=== PATIENT | female | born 1970 | race African-American/Black ===

== ENCOUNTER 2017-04-10 14:11 | Outpatient (CLI) | payer MEDICARE | END 2017-04-10 14:12 | disposition home or self-care (01) | LOC: BICRAD 14:11 | PROVIDERS: ATTEND Family Medicine | DX: M79.641 Pain in right hand (principal); M79.642 Pain in left hand ==

== ENCOUNTER 2017-04-19 03:44 | Emergency (ER) | payer MEDICARE ==
[2017-04-19] MEDS ORDERED: Gabapentin 300 MG CAP PO SCH (04:45)
== END 2017-04-19 04:55 | disposition home or self-care (01) ==
LOC: ERS 03:44
DX: G62.9 Polyneuropathy, unspecified (principal); F41.9 Anxiety disorder, unspecified; Z87.891 Personal history of nicotine dependence; Z79.1 Long term (current) use of non-steroidal anti-inflammatories (NSAID)
CPT/HCPCS: 99283

== ENCOUNTER 2017-05-06 16:19 | Outpatient (CLI) | payer MEDICARE | END 2017-05-06 16:20 | disposition home or self-care (01) | LOC: BICMAMMO 16:19 | PROVIDERS: ATTEND Family Medicine | DX: N63.10 Unspecified lump in the right breast, unspecified quadrant (principal); N64.89 Other specified disorders of breast | CPT/HCPCS: 76642; 77066; G0279 ==

== ENCOUNTER 2018-07-30 15:45 | Outpatient (CLI) | payer MEDICARE ==
--- NOTE | 2018-07-30 16:18 | MMO ---
Bilateral MAMMO Bilat Screen [facility]. CLINICAL HISTORY: Patient is 47 years old and is seen for screening. The patient has the following family history of breast cancer: cousin female. The patient has no personal history of cancer. The patient has a history of left Excisional Biopsy in November, - benign and left Ultrasound Guided Core Biopsy in October, - fibroadenoma. VIEWS: The views performed were: bilateral craniocaudal with tomosynthesis and bilateral mediolateral oblique with tomosynthesis. FILMS COMPARED: The present examination has been compared to prior imaging studies performed at [facility] on 11/06/2011, 11/08/2011, 10/21/2013, 05/20/2015, 05/21/2016 and 05/06/2017. MAMMOGRAM FINDINGS: There are scattered fibroglandular densities. Finding 1: There is a stable focal asymmetry seen in the upper-outer region of the right breast. Finding 2: There is a stable post-surgical scar seen in the left breast. There are no suspicious masses, suspicious calcifications, or new areas of architectural distortion. IMPRESSION: THERE IS NO MAMMOGRAPHIC EVIDENCE OF MALIGNANCY. A ROUTINE FOLLOW-UP MAMMOGRAM IN 1 YEAR IS RECOMMENDED. THE RESULTS OF THIS EXAM WERE SENT TO THE PATIENT. ACR BI-RADS Category 2 - Benign finding MAMMOGRAPHY NOTE: 1. A negative mammogram report should not delay a biopsy if a dominant of clinically suspicious mass is present. 2. Approximately 10% to 15% of breast cancers are not detected by mammography. 3. Adenosis and dense breasts may obscure an underlying neoplasm.
== END 2018-07-30 15:46 | disposition home or self-care (01) ==
LOC: BICMAMMO 15:45
PROVIDERS: ATTEND Family Medicine
DX: Z12.31 Encounter for screening mammogram for malignant neoplasm of breast (principal); Z80.3 Family history of malignant neoplasm of breast
CPT/HCPCS: 77063; 77067

== ENCOUNTER 2019-10-23 09:03 | Outpatient (CLI) | payer MEDICARE ==
--- NOTE | 2019-10-23 10:00 | MMO ---
Bilateral MAMMO Bilat Screen [facility]. CLINICAL HISTORY: Patient is 49 years old and is seen for screening. The patient has the following family history of breast cancer: cousin female. The patient has no personal history of cancer. The patient has a history of left Excisional Biopsy in November, - benign and left Ultrasound Guided Core Biopsy in October, - fibroadenoma. VIEWS: The views performed were: bilateral craniocaudal with tomosynthesis and bilateral mediolateral oblique with tomosynthesis. FILMS COMPARED: The present examination has been compared to prior imaging studies performed at [facility] on 05/20/2015, 05/21/2016, 05/06/2017 and 07/30/2018. This study has been interpreted with the assistance of computer-aided detection. MAMMOGRAM FINDINGS: There are scattered fibroglandular densities. Finding 1: There is a stable focal asymmetry seen in the right breast. Finding 2: There are stable post operative changes seen in the left breast. There are no suspicious masses, suspicious calcifications, or new areas of architectural distortion. IMPRESSION: THERE IS NO MAMMOGRAPHIC EVIDENCE OF MALIGNANCY. A ROUTINE FOLLOW-UP MAMMOGRAM IN 1 YEAR IS RECOMMENDED. THE RESULTS OF THIS EXAM WERE SENT TO THE PATIENT. ACR BI-RADS Category 2 - Benign finding MAMMOGRAPHY NOTE: 1. A negative mammogram report should not delay a biopsy if a dominant of clinically suspicious mass is present. 2. Approximately 10% to 15% of breast cancers are not detected by mammography. 3. Adenosis and dense breasts may obscure an underlying neoplasm. Reported by: YOLANDA WATKINS MD Electonically Signed: [id number]
--- NOTE | 2019-10-23 10:34 | RAD ---
RIGHT FOOT 3 VIEWS: Date: 10/23/2019 HISTORY: Right foot pain at fifth metatarsal. FINDINGS/IMPRESSION: No fracture, dislocation, or bony destruction is seen. POS: [facility]
== END 2019-10-23 09:04 | disposition home or self-care (01) ==
LOC: BICMAMMO 09:03
PROVIDERS: ATTEND Family Medicine
DX: Z12.31 Encounter for screening mammogram for malignant neoplasm of breast (principal); M79.671 Pain in right foot; Z80.3 Family history of malignant neoplasm of breast; Z91.89 Other specified personal risk factors, not elsewhere classified
CPT/HCPCS: 77063; 77067

== ENCOUNTER 2020-03-08 14:34 | Outpatient (CLI) | payer MEDICARE ==
--- NOTE | 2020-03-08 14:55 | RAD ---
XR Knee Rt 4 View STANDARD HISTORY: Right knee pain FINDINGS: No fracture or dislocation is identified. Degenerative changes are present manifested by osteophyte f ormation and joint space narrowing, most prominent in the medial tibiofemoral compartment.
== END 2020-03-08 14:35 | disposition home or self-care (01) ==
LOC: BICRAD 14:34
PROVIDERS: ATTEND Family Medicine
DX: M25.561 Pain in right knee (principal)

== ENCOUNTER 2020-11-18 13:02 | Outpatient (CLI) | payer MEDICARE | END 2020-11-18 13:03 | disposition home or self-care (01) | LOC: BICMAMMO 13:02 | PROVIDERS: ATTEND Family Medicine | DX: Z12.31 Encounter for screening mammogram for malignant neoplasm of breast (principal); Z80.3 Family history of malignant neoplasm of breast; Z91.89 Other specified personal risk factors, not elsewhere classified | CPT/HCPCS: 77063; 77067 ==

== ENCOUNTER 2022-01-23 10:22 | Outpatient (CLI) | payer OTHER | END 2022-01-23 10:23 | disposition home or self-care (01) | LOC: DTY/OP 10:22 | PROVIDERS: ATTEND Surgery | DX: E66.01 Morbid (severe) obesity due to excess calories (principal); Z68.43 Body mass index [BMI] 50.0-59.9, adult; Z71.3 Dietary counseling and surveillance | CPT/HCPCS: 97802 ==

== ENCOUNTER 2022-03-21 08:05 | Outpatient (CLI) | payer MEDICARE ==
[2022-03-21 10:00] LABS: #Eosinphils 0.1 10x3/uL (0.0-0.5); #Monocytes 0.7 10x3/uL (0.0-1.1); #Neutrophils 5.8 10x3/uL (1.5-8.4); %Basophils 0.4 % (0.0-2.0); %Lymphocytes 21.2 % (18.0-47.0); %Monocytes 8.1 % (0.0-10.0); %Neutrophils 69.1 % (40.0-75.0); Hemoglobin 12.3 g/dL (12.0-15.5); Mean Corpuscular HGB CONC 32.7 g/dL (32.0-36.0); Mean Corpuscular Volume 91.7 fl (81.6-98.3); Mean Platelet Volume 11.6 fl (7.4-10.4); Platelet Count 347 10x3/uL (150-450); RBC Distribution Width 14.6 % (11.5-14.5); White Blood Cell (WBC) Count 8.4 10x3/uL (3.5-10.5)
[2022-03-21 10:19] LABS: ALT (SGPT) 47 U/L (8-55); AST (SGOT) 38 U/L (5-34); Albumin 4.5 g/dL (3.5-5.0); Alkaline Phosphatase 100 U/L (40-110); Anion Gap 15 mmol/L (10-20); BUN (Urea Nitrogen) 20 mg/dL (7.0-18.7); Bilirubin, Total 0.4 mg/dL (0.2-1.2); Calc. Creatinine Clearance 0 mL/min (70-130); Carbon Dioxide 25 mmol/L (22-29); Chloride 100 mmol/L (98-107); Estimated GFR 92; Globulin 3.6 g/dL (2.4-3.5); Glucose 88 mg/dL (70-105); Potassium 4.2 mmol/L (3.5-5.1); Protein, Total 8.1 g/dL (6.0-8.3); Sodium 136 mmol/L (136-145)
[2022-03-21 13:05] LABS: Hemoglobin A1c 5.7 % (4.0-6.0)
== END 2022-03-21 08:06 | disposition home or self-care (01) ==
LOC: LABBT 08:05
PROVIDERS: ATTEND Surgery
DX: Z01.818 Encounter for other preprocedural examination (principal); E11.9 Type 2 diabetes mellitus without complications; I10 Essential (primary) hypertension; Z68.43 Body mass index [BMI] 50.0-59.9, adult
CPT/HCPCS: 71046; 80053; 83036; 85025; 93005; 93010

== ENCOUNTER 2022-03-29 09:49 | Inpatient (IN) | payer MEDICARE ==
[2022-03-28 15:31] VITALS: BMI 47.0
[2022-03-29] MEDS ORDERED: Bupivacaine/Epinephrine 0.25% 30 ML VIAL ONE (11:56)
[2022-03-29] MEDS ORDERED: Heparin 5,000 UNITS/ML VIAL ONE (12:04)
[2022-03-29] MEDS ORDERED: Sodium Chloride 0.9% 100 ML ONE (12:06)
[2022-03-29] MEDS ORDERED: CEFAZOLIN 2 GM VIAL ONE (12:06)
[2022-03-29] MEDS ORDERED: Midazolam HCl 2 mg/2 ml Vial ONE (12:08)
[2022-03-29] MEDS ORDERED: Fentanyl 250 MCG/5 ML VIAL ONE (12:08)
[2022-03-29] MEDS ORDERED: NEOSTIGMINE 3 MG/3 ML SYR 3 MG/3 ML SYRINGE ONE (12:18)
[2022-03-29] MEDS ORDERED: GLYCOPYRROLATE/PF 0.2 MG/ML VIAL ONE (12:18)
[2022-03-29] MEDS ORDERED: Phenylephrine 10 MG/ML VIAL ONE (12:18)
[2022-03-29] MEDS ORDERED: Ketorolac Tromethamine 30 MG/ML VIAL ONE (12:18)
[2022-03-29] MEDS ORDERED: PROPOFOL 200 MG/20 ML VIAL ONE (12:18)
[2022-03-29] MEDS ORDERED: Rocuronium Bromide 10 MG/ML (10ML VIAL) ONE (12:18)
[2022-03-29] MEDS ORDERED: Ondansetron PF 4 MG/2 ML Vial IVP PRN (14:45)
[2022-03-29] MEDS ORDERED: hydrALAZINE 20 MG/ML VIAL SLOW IVP PRN (14:45)
[2022-03-29] MEDS ORDERED: Dextrose 5% in Water 1,000 ML IV PRN (14:45)
[2022-03-29] MEDS ORDERED: diphenhydrAMINE 50 MG/ML VIAL IVP PRN (14:45)
[2022-03-29] MEDS ORDERED: Dextrose 50% Abboject 50 ML SYRINGE SLOW IVP PRN (14:45)
[2022-03-29] MEDS ORDERED: Promethazine HCl 25 MG/ML VIAL IM PRN ×2 (14:45→14:52)
[2022-03-29] MEDS ORDERED: Meperidine HCl/PF 25 MG/ML VIAL SLOW IVP PRN (14:52)
[2022-03-29] MEDS ORDERED: Ondansetron HCl/PF 4 MG/2 ML Vial IVP PRN (14:52)
[2022-03-29] MEDS ORDERED: Promethazine HCl 25 MG/ML VIAL IVPB PRN (14:52)
[2022-03-29] MEDS ORDERED: Morphine 4 MG/ML VIAL SLOW IVP PRN (14:58)
[2022-03-29] MEDS: Ketorolac Tromethamine 30 MG/ML VIAL IVP SCH ×2 (17:25→23:03)
[2022-03-29] MEDS: D5 1/2 NS w/20 mEq KCL 1,000 ML IV SCH (17:26)
[2022-03-29] MEDS: Morphine 4 MG/ML VIAL SLOW IVP PRN (20:23)
[2022-03-29] MEDS: CEFAZOLIN 2 GM in Sodium Chloride 0.9% 100 ML IVPB SCH (20:23)
[2022-03-30] MEDS: Morphine 4 MG/ML VIAL SLOW IVP PRN (02:19)
[2022-03-30] MEDS: D5 1/2 NS w/20 mEq KCL 1,000 ML IV SCH ×2 (02:19→07:44)
[2022-03-30] MEDS: CEFAZOLIN 2 GM in Sodium Chloride 0.9% 100 ML IVPB SCH (05:32)
[2022-03-30] MEDS: Ketorolac Tromethamine 30 MG/ML VIAL IVP SCH ×2 (05:32→11:15)
[2022-03-30] MEDS: Hydrocodone-Acetamin 15 ML UDCUP PO PRN ×2 (05:34→11:15)
[2022-03-30 08:03] VITALS: TEMP 98
[2022-03-30] MEDS ORDERED: Enoxaparin Sodium 40 MG/0.4 ML SYRINGE SC SCH (09:00)
[2022-03-30] MEDS ORDERED: Pantoprazole 40 MG VIAL IVP SCH (09:00)
[2022-03-30 09:55] LABS: #Lymphocytes 1.6 thou/uL (1.20-3.40); #Neutrophils 10.4 thou/uL (1.40-6.50); %Basophils 0.3 % (0.0-1.0); %Eosinophils 0.3 % (0.0-10.0); %Lymphocytes 11.9 % (21.0-51.0); %Monocytes 7.7 % (0.0-10.0); %Neutrophils 79.8 % (42.0-75.0); Hemoglobin 10.9 g/dL (12.0-16.0); Mean Corpuscular Hemoglobin 30.8 pg (27.0-31.0); Mean Corpuscular Volume 96.2 fl (78.0-98.0); Mean Platelet Volume 9.9 fL (7.4-10.4); Platelet Count 258 10x3/uL (130-400); RBC Distribution Width 13.2 % (11.5-14.5); Red Blood Cell (RBC) Count 3.54 mill/uL (4.20-5.40); White Blood Cell (WBC) Count 13.1 10x3/uL (4.8-10.8)
[2022-03-30 10:23] LABS: Anion Gap 9 mmol/L (10-20); BUN (Urea Nitrogen) 8 mg/dL (7.0-18.7); Calc. Creatinine Clearance 165 mL/min (70-130); Calcium 8.9 mg/dL (7.8-10.44); Carbon Dioxide 29 mmol/L (22-29); Chloride 102 mmol/L (98-107); Estimated GFR 97; Glucose 102 mg/dL (70-105); Potassium 3.9 mmol/L (3.5-5.1); Sodium 136 mmol/L (136-145)
[2022-03-30 11:50] VITALS: BP 124/82
== END 2022-03-30 14:25 | disposition home or self-care (01) | DRG 620 ==
LOC: SURG A 09:50 → EDSTATUS 15:06 → SURG A 17:26
PROVIDERS: ADMIT Surgery; ATTEND Surgery
PROC: 0D164ZA Bypass Stomach to Jejunum, Percutaneous Endoscopic Approach (ICD-10-PCS; principal; 2022-03-29)
PROC: 0BQT4ZZ Repair Diaphragm, Percutaneous Endoscopic Approach (ICD-10-PCS; 2022-03-29)
DX: E66.01 Morbid (severe) obesity due to excess calories (principal); K22.10 Ulcer of esophagus without bleeding; I10 Essential (primary) hypertension; E11.9 Type 2 diabetes mellitus without complications; Z20.822 Contact with and (suspected) exposure to COVID-19; K44.9 Diaphragmatic hernia without obstruction or gangrene; Z68.42 Body mass index [BMI] 45.0-49.9, adult; Z79.51 Long term (current) use of inhaled steroids; Z79.899 Other long term (current) drug therapy
CPT/HCPCS: 36415; 80048; 85025; C9113; J1644; J1650; J1885; J2250; J2270; J2370; J2405; J2704; J3010; J3480; J3490

== ENCOUNTER 2022-04-15 12:54 | Emergency (ER) | payer MEDICARE ==
[~2022-04-15 12:54] MED LIST: Iopamidol-370 76% 500 ML 1 ML ONE
[2022-04-15] MEDS ORDERED: Acetaminophen 500 MG TAB ONE (13:22)
[2022-04-15 13:44] LABS: #Basophils 0.1 thou/uL (0.0-0.2); #Eosinphils 0.3 thou/uL (0.0-0.7); #Lymphocytes 1.9 thou/uL (1.20-3.40); #Monocytes 0.6 thou/uL (0.11-0.59); #Neutrophils 5.9 thou/uL (1.40-6.50); %Basophils 0.6 % (0.0-1.0); %Eosinophils 3.9 % (0.0-10.0); %Lymphocytes 21.3 % (21.0-51.0); %Monocytes 7.1 % (0.0-10.0); %Neutrophils 67.2 % (42.0-75.0); Hemoglobin 11.9 g/dL (12.0-16.0); Mean Corpuscular HGB CONC 32.3 g/dL (32.0-36.0); Mean Corpuscular Hemoglobin 30.8 pg (27.0-31.0); Mean Corpuscular Volume 95.5 fl (78.0-98.0); Mean Platelet Volume 10.8 fL (7.4-10.4); Platelet Count 263 10x3/uL (130-400); Red Blood Cell (RBC) Count 3.86 mill/uL (4.20-5.40); White Blood Cell (WBC) Count 8.8 10x3/uL (4.8-10.8)
[2022-04-15 14:07] LABS: ALT (SGPT) 30 U/L (8-55); AST (SGOT) 25 U/L (5-34); Albumin 3.9 g/dL (3.5-5.0); Alkaline Phosphatase 110 U/L (40-110); Anion Gap 16 mmol/L (10-20); BUN (Urea Nitrogen) 11 mg/dL (7.0-18.7); Bilirubin, Total 0.5 mg/dL (0.2-1.2); Calc. Creatinine Clearance 0 mL/min (70-130); Calcium 9.8 mg/dL (7.8-10.44); Carbon Dioxide 25 mmol/L (22-29); Chloride 100 mmol/L (98-107); Estimated GFR 102; Globulin 3.7 g/dL (2.4-3.5); Glucose 85 mg/dL (70-105); Lipase 311 U/L (8-78); Potassium 4.2 mmol/L (3.5-5.1); Protein, Total 7.6 g/dL (6.0-8.3); Sodium 137 mmol/L (136-145)
[2022-04-15 14:08] LABS: Bilirubin Negative (Negative); Blood, Urine Negative (Negative); Calcium Oxalate Crystals 4+ HPF (None Seen); Clarity Clear (Clear); Glucose, Urine (Dipstick) Normal (Negative); Ketone, Urine Greater than 150 mg/dL (Negative); Leukocyte Negative Leu/uL (Negative); Nitrite Negative (Negative); Protein, Urine (Dipstick) 30 mg/dL (Neg-Trace); RBC/HPF 0-3 HPF (0-3); Specific Gravity, Urine 1.034 (1.002-1.036); Squamous Epithelial 0-3 HPF (0-3); Urobilinogen 3 mg/dL (Less than 2)
[2022-04-15 14:09] LABS: Bacteria/HPF 1+ HPF (None Seen)
[2022-04-15] MEDS ORDERED: Morphine 4 MG/ML VIAL ONE (14:37)
[2022-04-15] MEDS ORDERED: Ondansetron PF 4 MG/2 ML Vial ONE (14:37)
[2022-04-15] MEDS ORDERED: Lidocaine Viscous Sol 2% 15 ml UD Cup ONE (16:18)
[2022-04-15] MEDS ORDERED: Mag-Al 1200 mg/1200 mg/30 ML UDCUP ONE (16:18)
== END 2022-04-15 16:23 | disposition home or self-care (01) ==
LOC: ERS 12:54
DX: M54.50 Low back pain, unspecified (principal); K85.90 Acute pancreatitis without necrosis or infection, unspecified; E66.01 Morbid (severe) obesity due to excess calories
CPT/HCPCS: 36415; 71045; 74177; 80053; 81003; 81015; 83690; 84484; 85025; 93005; 96374; 96375; J2270; J2405; Q9967

== ENCOUNTER 2022-08-13 10:45 | Outpatient (CLI) | payer MEDICARE | END 2022-08-13 10:46 | disposition home or self-care (01) | LOC: BICMAMMO 10:45 | PROVIDERS: ATTEND Family Medicine | DX: Z12.31 Encounter for screening mammogram for malignant neoplasm of breast (principal) | CPT/HCPCS: 77063; 77067 ==

== ENCOUNTER 2023-06-27 15:43 | Outpatient (CLI) | payer MEDICARE | END 2023-06-27 15:44 | disposition home or self-care (01) | LOC: BICRAD 15:43 | PROVIDERS: ATTEND Family Medicine | DX: M17.12 Unilateral primary osteoarthritis, left knee (principal) ==

== ENCOUNTER 2023-09-16 21:07 | Emergency (ER) | payer MEDICARE, OTHER | END 2023-09-16 22:30 | disposition home or self-care (01) | LOC: ERS 21:07 | DX: S16.1XXA Strain of muscle, fascia and tendon at neck level, initial encounter (principal); S80.01XA Contusion of right knee, initial encounter; S20.212A Contusion of left front wall of thorax, initial encounter; Z55.6 Problems related to health literacy; I10 Essential (primary) hypertension; V89.2XXA Person injured in unspecified motor-vehicle accident, traffic, initial encounter | CPT/HCPCS: 99284 ==

== ENCOUNTER 2023-09-25 16:00 | Outpatient (CLI) | payer MEDICARE | END 2023-09-25 16:01 | disposition home or self-care (01) | LOC: SLEEPLAB 16:00 | PROVIDERS: ATTEND Family Medicine | DX: G47.33 Obstructive sleep apnea (adult) (pediatric) (principal); I10 Essential (primary) hypertension; R53.83 Other fatigue; R51.9 Headache, unspecified; R06.83 Snoring; E66.9 Obesity, unspecified; Z68.33 Body mass index [BMI] 33.0-33.9, adult | CPT/HCPCS: 95810 ==

== ENCOUNTER 2024-01-16 14:38 | Outpatient (CLI) | payer MEDICARE | END 2024-01-16 14:39 | disposition home or self-care (01) | LOC: BICMAMMO 14:38 | PROVIDERS: ATTEND Family Medicine | DX: Z12.31 Encounter for screening mammogram for malignant neoplasm of breast (principal); Z80.3 Family history of malignant neoplasm of breast; Z91.89 Other specified personal risk factors, not elsewhere classified | CPT/HCPCS: 77063; 77067 ==

== ENCOUNTER 2024-02-07 08:12 | Emergency (ER) | payer MEDICARE ==
[2024-02-07] MEDS ORDERED: Meclizine HCl 25 MG TAB ONE (08:58)
[2024-02-07 09:22] LABS: #Basophils Less than 0.03 10x3/uL (0.0-0.2); #Eosinophils Less than 0.03 10x3/uL (0.0-0.7); %Basophils 0.2 % (0.0-1.0); %Eosinophils 0.2 % (0.0-10.0); %Lymphocytes 17.9 % (21.0-51.0); %Monocytes 15.1 % (0.0-10.0); %Neutrophils 66.4 % (42.0-75.0); Hematocrit 38.5 % (36.0-47.0); Hemoglobin 12.3 g/dL (12.0-16.0); Mean Corpuscular HGB CONC 31.9 g/dL (32.0-36.0); Mean Corpuscular Hemoglobin 30.4 pg (27.0-31.0); Mean Corpuscular Volume 95.1 fL (78.0-98.0); Mean Platelet Volume 11.5 fL (7.4-10.4); Platelet Count 247 10x3/uL (130-400); RBC Distribution Width 13.7 % (11.5-14.5); Red Blood Cell (RBC) Count 4.05 mill/uL (4.20-5.40)
[2024-02-07 09:48] LABS: ALT (SGPT) 24 U/L (8-55); AST (SGOT) 25 U/L (5-34); Albumin 3.7 g/dL (3.5-5.0); Alkaline Phosphatase 126 U/L (40-110); Anion Gap 14 mmol/L (10-20); BUN (Urea Nitrogen) 9 mg/dL (9.8-20.1); Bilirubin, Total 0.5 mg/dL (0.2-1.2); Calc. Creatinine Clearance 0 mL/min (70-130); Calcium 9.2 mg/dL (7.8-10.44); Carbon Dioxide 27 mmol/L (22-29); Chloride 102 mmol/L (98-107); Estimated GFR 86; Globulin 3.8 g/dL (2.4-3.5); Glucose 93 mg/dL (70-105); Lipase 38 U/L (8-78); Potassium 3.6 mmol/L (3.5-5.1); Protein, Total 7.5 g/dL (6.0-8.3); Sodium 139 mmol/L (136-145)
[2024-02-07 09:53] LABS: Troponin I 0.018 ng/mL (< 0.028)
[2024-02-07 10:47] LABS: Bilirubin Negative (Negative); Blood, Urine Negative (Negative); CAUTI Indications for Culture Acute Hematuria; Clarity Clear (Clear); Glucose, Urine (Dipstick) Normal (Negative); Ketone, Urine Trace mg/dL (Negative); Leukocyte Negative Leu/uL (Negative); Nitrite Negative (Negative); Protein, Urine (Dipstick) 20 mg/dL (Neg-Trace); RBC/HPF None Seen HPF (0-3); Specific Gravity, Urine 1.019 (1.002-1.036); Urobilinogen Normal mg/dL (Less than 2)
[2024-02-07 10:48] LABS: Bacteria/HPF 1+ HPF (None Seen)
[2024-02-07 10:49] LABS: Urine Culture Reflex Yes Yes
== END 2024-02-07 11:25 | disposition home or self-care (01) ==
LOC: ERS 08:12
DX: U07.1 COVID-19 (principal); R42 Dizziness and giddiness; I10 Essential (primary) hypertension
CPT/HCPCS: 71045; 80053; 81001; 83690; 84484; 85025; 87086; 87428; 93005